=== PATIENT | male | born 1985 | race Caucasian/White ===

== ENCOUNTER → 2017-07-08 | Outpatient (CLI) | payer BC ==
[~2017-07-08] MED LIST: VENTOLIN HFA 1818 GM INH
== END ==
LOC: M.RAD 17:03
DX: S42.002A Fracture of unspecified part of left clavicle, initial encounter for closed fracture (principal); X58.XXXA Exposure to other specified factors, initial encounter; Y93.89 Activity, other specified; Y92.89 Other specified places as the place of occurrence of the external cause; Y99.8 Other external cause status

== ENCOUNTER → 2017-07-09 | Outpatient (CLI) | payer BC | LOC: M.MRI 16:13 | DX: S09.90XA Unspecified injury of head, initial encounter (principal); V89.2XXS Person injured in unspecified motor-vehicle accident, traffic, sequela; Y93.89 Activity, other specified; Y92.89 Other specified places as the place of occurrence of the external cause; Y99.8 Other external cause status ==

== ENCOUNTER → 2017-09-13 | Outpatient (CLI) | payer BC | LOC: M.RAD 15:47 | DX: S09.90XD Unspecified injury of head, subsequent encounter (principal); F31.9 Bipolar disorder, unspecified; V89.2XXD Person injured in unspecified motor-vehicle accident, traffic, subsequent encounter; Y93.55 Activity, bike riding; Y92.89 Other specified places as the place of occurrence of the external cause; Y99.8 Other external cause status ==

== ENCOUNTER → 2017-10-06 | Outpatient (CLI) | payer BC | LOC: M.MRI 09-29 10:12 | DX: M25.852 Other specified joint disorders, left hip (principal); M50.122 Cervical disc disorder at C5-C6 level with radiculopathy; F31.9 Bipolar disorder, unspecified; S09.90XD Unspecified injury of head, subsequent encounter; X58.XXXD Exposure to other specified factors, subsequent encounter ==

== ENCOUNTER → 2017-11-24 | Outpatient (CLI) | payer BC | LOC: M.MRI 16:21 | DX: S09.90XD Unspecified injury of head, subsequent encounter (principal); V89.2XXD Person injured in unspecified motor-vehicle accident, traffic, subsequent encounter ==

== ENCOUNTER 2017-12-17 16:46 | Emergency (ER) | payer BC ==
[~2017-12-17] VITALS: Ht 175.3 cm; Wt 72.6 kg
[2017-12-17 17:28] LABS: ABSOLUTE BASOPHILS 0.1 thou/uL (0.0-0.2); ABSOLUTE EOSINOPHILS 0.2 thou/uL (0.0-0.7); ABSOLUTE LYMPHOCYTES 3.5 thou/uL (0.8-5.3); ABSOLUTE NEUTROPHILS 3.9 thou/uL (1.6-8.1); EOSINOPHILS 2.2 %; HEMATOCRIT 43.7 % (42.0-52.0); HEMOGLOBIN 14.4 gm/dL (14.0-18.0); LYMPHOCYTES 39.9 %; MCH 31.4 pg (26.0-34.0); MCHC 32.9 g/dL (28.0-37.0); MCV 95.5 fL (80.0-100.0); MPV 9.2 fl. (7.2-11.1); NUCLEATED RBCS 0 /100WBC; PLATELET COUNT* 299 thou/uL (150-400); POLYS 44.9 %; RBC 4.58 mil/uL (4.50-6.00); RDW-CV 14.5 % (10.5-14.5); WBC 8.6 thou/uL (4.0-11.0)
[2017-12-17 17:34] LABS: ANION GAP 8 mmol/L (7-16); BUN 21 mg/dL (7-18); CALCIUM 8.9 mg/dL (8.5-10.1); CHLORIDE 104 mmol/L (98-107); CO2 24 mmol/L (21-32); GLUCOSE 105 mg/dL (70-99); POTASSIUM 3.3 mmol/L (3.5-5.1); SODIUM 136 mmol/L (136-145)
[2017-12-17 17:44] LABS: ALKALINE PHOSPHATASE 100 U/L (46-116); LIPASE 77 U/L (73-393); NT-PRO BRAIN NAT PEPTIDE 13 pg/mL (<300); SGOT 41 U/L (15-37); SGPT 86 U/L (30-65); TOTAL BILIRUBIN 0.9 mg/dL (<0.1-1.0); TOTAL PROTEIN 7.6 g/dL (6.4-8.2); TROPONIN-I LEVEL <0.06 ng/mL (<0.06)
[2017-12-17] MEDS ORDERED: VENTOLIN HFA 1818 GM INH (17:54)
[2017-12-17 18:10] VITALS: BP 119/66
--- NOTE | 2017-12-20 11:06 | EKG ---
[place] [address] ELECTROCARDIOGRAM REPORT Name: JENNIFER HICKMAN [facility] [id number] Admission: 12/17/17 Attend Phys: Discharge: 12/17/17 Date of : 87 Report #: [id number] THIS REPORT FOR: //name// [facility] ED Test Date: 2017-12-17 Test Time: 17:00:36 Pat Name: JENNIFER HICKMAN Department: Room: Gender: M Boatswains Mate: : 1985 Requested By: Lupillo Garcia Order Number: [id number] MD: Jennifer Lu Measurements Intervals [place] Rate: 49 P: 65 CO: 183 QRS: 5 QRSD: 83 T: 41 QT: 424 QTc: 383 Interpretive Statements Sinus bradycardia septal infarct, age indeterminate Baseline wander in lead(s) V2 No previous ECG available for comparison Electronically Signed On 12-20-2017 11:06:05 CDT by Jennifer Lu [email or web address] <ELECTRONICALLY SIGNED> By: Jennifer uL MD, [facility] 12/20/17 1106 1700 1700 Jennifer Lu MD, FACC /EPI
== END 2017-12-17 18:10 | disposition home or self-care (01) ==
LOC: M.ERS 16:46
PROVIDERS: Emergency Medicine
DX: R06.00 Dyspnea, unspecified (principal); Z87.891 Personal history of nicotine dependence; Z88.0 Allergy status to penicillin

== ENCOUNTER 2017-12-25 16:49 | Emergency (ER) | payer BC ==
[~2017-12-25] VITALS: Ht 175.3 cm; Wt 78.5 kg
[2017-12-25 17:47] LABS: URINE BILIRUBIN NEGATIVE (Negative); URINE BLOOD NEGATIVE (Negative); URINE CLARITY CLEAR; URINE COLOR YELLOW; URINE GLUCOSE-RANDOM NEGATIVE (Negative); URINE KETONES NEGATIVE (Negative); URINE LEUKOCYTES-REFLEX NEGATIVE (Negative); URINE NITRITE-REFLEX NEGATIVE (Negative); URINE PROTEIN NEGATIVE (Negative); URINE SPECIFIC GRAVITY 1.015 (1.005-1.030); URINE UROBILINOGEN 0.2 E.U./dl (0.2-1.0)
[2017-12-25 17:54] LABS: AMP/METHAMP Negative (Negative); BARBITURATES Negative (Negative); BENZODIAZEPINES Negative (Negative); COCAINE Negative (Negative); METHADONE Negative (Negative); OPIATES Negative (Negative); PCP Negative (Negative); THC Negative (Negative)
[2017-12-25 18:00] LABS: ABSOLUTE BASOPHILS 0.1 thou/uL (0.0-0.2); ABSOLUTE LYMPHOCYTES 2.7 thou/uL (0.8-5.3); ABSOLUTE MONOCYTES 0.6 thou/uL (0.0-1.2); ABSOLUTE NEUTROPHILS 6.2 thou/uL (1.6-8.1); BASOPHILS 0.7 %; EOSINOPHILS 0.5 %; HEMATOCRIT 43.9 % (42.0-52.0); HEMOGLOBIN 14.6 gm/dL (14.0-18.0); LYMPHOCYTES 27.7 %; MCH 31.9 pg (26.0-34.0); MCHC 33.1 g/dL (28.0-37.0); MCV 96.2 fL (80.0-100.0); MONOCYTES 6.5 %; MPV 8.9 fl. (7.2-11.1); NUCLEATED RBCS 0 /100WBC; PLATELET COUNT* 303 thou/uL (150-400); POLYS 64.6 %; RBC 4.57 mil/uL (4.50-6.00); RDW-CV 14.8 % (10.5-14.5); WBC 9.6 thou/uL (4.0-11.0)
[2017-12-25 18:05] LABS: CALCIUM 9.2 mg/dL (8.5-10.1); POTASSIUM 4.1 mmol/L (3.5-5.1)
[2017-12-25 18:15] LABS: ALBUMIN 4.1 g/dL (3.4-5.0); TOTAL BILIRUBIN 0.1 mg/dL (<0.1-1.0); TOTAL PROTEIN 7.8 g/dL (6.4-8.2)
[2017-12-25 18:45] VITALS: BP 155/81
== END 2017-12-25 18:45 | disposition home or self-care (01) ==
LOC: M.ERS 16:49
PROVIDERS: Nurse Practitioner Family
DX: R11.0 Nausea (principal); R53.83 Other fatigue; Z87.01 Personal history of pneumonia (recurrent); Z88.0 Allergy status to penicillin; Z87.891 Personal history of nicotine dependence

== ENCOUNTER → 2018-01-04 | Outpatient (CLI) | payer BC ==
--- NOTE | 2018-01-07 11:58 | PF ---
[address] [address] PULMONARY FUNCTION REPORT Name: PAKO HICKMAN Room: [facility].#: [id number] Admission: Attend Phys: Pako Santamaria MD Discharge: Date of : 87 Report #: [id number] THIS REPORT FOR: //name// CC: Pako Santamaria REFERRING PHYSICIAN: Pako Santamaria M.D. TYPE OF STUDY: Pulmonary function test. SPIROMETRY: The FEV1/FVC was 74%. FEV1 was 2.8 liters at 65% predicted. FVC was 67% predicted. Total lung capacity was 61% predicted. DLCO was 83% predicted. The [id number] percentage was 53% of predicted. IMPRESSION: The above pulmonary function test was suggestive of small airway disease and evidence of restrictive pulmonary defect of [id number]-iddbijag degree with normal DLCO. <ELECTRONICALLY SIGNED> By: Panchito Montano MD 01/07/18 1158 1414 0228Sherry Mckeon MD /nt
== END ==
LOC: M.CT 12-29 07:52
DX: K76.0 Fatty (change of) liver, not elsewhere classified (principal); K80.20 Calculus of gallbladder without cholecystitis without obstruction; J98.4 Other disorders of lung; R42 Dizziness and giddiness; M25.552 Pain in left hip; R53.1 Weakness; Z90.81 Acquired absence of spleen

== ENCOUNTER → 2018-03-18 | Outpatient (CLI) | payer BC | LOC: M.MRI 17:08 | DX: M25.552 Pain in left hip (principal); S09.90XD Unspecified injury of head, subsequent encounter; M54.2 Cervicalgia; F31.9 Bipolar disorder, unspecified; R42 Dizziness and giddiness; X58.XXXD Exposure to other specified factors, subsequent encounter ==

== ENCOUNTER → 2018-04-06 | Outpatient (CLI) | payer BC | END | disposition home or self-care (01) | LOC: M.RAD 03-28 11:22 | DX: S73.192D Other sprain of left hip, subsequent encounter (principal); M25.552 Pain in left hip; J45.909 Unspecified asthma, uncomplicated; Z88.0 Allergy status to penicillin; Z98.890 Other specified postprocedural states; Z79.899 Other long term (current) drug therapy; V89.2XXD Person injured in unspecified motor-vehicle accident, traffic, subsequent encounter ==

== ENCOUNTER → 2018-05-13 | Outpatient (CLI) | payer BC | LOC: M.RAD 13:27 | DX: M51.34 Other intervertebral disc degeneration, thoracic region (principal); J98.4 Other disorders of lung ==

== ENCOUNTER → 2019-12-13 | Outpatient (CLI) | payer MEDICARE | LOC: M.MRI 11-30 11:58 | PROVIDERS: ATTEND Internal Medicine | DX: S09.90XD Unspecified injury of head, subsequent encounter (principal); M25.552 Pain in left hip; M54.2 Cervicalgia; R42 Dizziness and giddiness; L40.9 Psoriasis, unspecified; V89.2XXD Person injured in unspecified motor-vehicle accident, traffic, subsequent encounter ==

== ENCOUNTER → 2019-12-21 | Outpatient (CLI) | payer MEDICARE | LOC: M.MRI 13:30 | PROVIDERS: ATTEND Internal Medicine | DX: M48.02 Spinal stenosis, cervical region (principal); M25.552 Pain in left hip; S09.90XD Unspecified injury of head, subsequent encounter; R42 Dizziness and giddiness; L40.9 Psoriasis, unspecified; M47.812 Spondylosis without myelopathy or radiculopathy, cervical region ==

== ENCOUNTER → 2020-01-02 | Outpatient (CLI) | payer MEDICARE | LOC: M.MRI 15:57 | PROVIDERS: ATTEND Internal Medicine | DX: M47.817 Spondylosis without myelopathy or radiculopathy, lumbosacral region (principal); F31.9 Bipolar disorder, unspecified; R42 Dizziness and giddiness; M54.42 Lumbago with sciatica, left side; M25.512 Pain in left shoulder; G89.29 Other chronic pain ==

== ENCOUNTER → 2020-01-18 | Outpatient (CLI) | payer MEDICARE ==
[~2020-01-18] MED LIST changes: +MOBIC15 MG PO; +NEURONTIN 300M300 M2 PO
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
== END ==
LOC: M.PC 01:46
PROVIDERS: ATTEND Anesthesiology Pain Medicine
DX: M47.817 Spondylosis without myelopathy or radiculopathy, lumbosacral region (principal); Z88.0 Allergy status to penicillin; Z79.899 Other long term (current) drug therapy

== ENCOUNTER → 2020-02-14 | Outpatient (CLI) | payer MEDICARE | LOC: M.CT 14:59 | PROVIDERS: ATTEND Registered Nurse Diabetes Educator | DX: K80.20 Calculus of gallbladder without cholecystitis without obstruction (principal); K62.5 Hemorrhage of anus and rectum ==

== ENCOUNTER → 2020-08-29 | Outpatient (CLI) | payer OTHER | LOC: M.RAD 15:15 | PROVIDERS: ATTEND Registered Nurse Diabetes Educator | DX: M48.02 Spinal stenosis, cervical region (principal); M25.552 Pain in left hip; M54.5 Low back pain; K80.20 Calculus of gallbladder without cholecystitis without obstruction ==

== ENCOUNTER → 2020-11-01 | Outpatient (CLI) | payer OTHER, MEDICAID | END | disposition home or self-care (01) | LOC: M.RAD 10-25 11:31 | PROVIDERS: ATTEND Registered Nurse Diabetes Educator | DX: M25.552 Pain in left hip (principal); M16.12 Unilateral primary osteoarthritis, left hip; S73.192A Other sprain of left hip, initial encounter; Z98.890 Other specified postprocedural states; Z79.899 Other long term (current) drug therapy; Z88.0 Allergy status to penicillin; X58.XXXA Exposure to other specified factors, initial encounter; Y93.89 Activity, other specified; Y92.89 Other specified places as the place of occurrence of the external cause; Y99.9 Unspecified external cause status ==

== ENCOUNTER → 2020-11-15 | Outpatient (CLI) | payer OTHER, MEDICAID | LOC: M.CT 14:00 | PROVIDERS: ATTEND Registered Nurse Diabetes Educator | DX: J92.9 Pleural plaque without asbestos (principal); J98.11 Atelectasis; J98.4 Other disorders of lung ==

== ENCOUNTER → 2021-06-30 | Outpatient (CLI) | payer OTHER, MEDICAID | LOC: M.MRI 13:30 | PROVIDERS: ATTEND Registered Nurse Diabetes Educator | DX: M50.222 Other cervical disc displacement at C5-C6 level (principal); M48.02 Spinal stenosis, cervical region; R10.2 Pelvic and perineal pain ==

== ENCOUNTER 2021-08-01 00:21 | Emergency (ER) | payer OTHER, MEDICAID ==
[~2021-08-01] VITALS: Ht 175.3 cm; Wt 52.6 kg
[2021-08-01] MEDS ORDERED: TRAMADOL 50 MG50 MG (00:38)
[2021-08-01 01:02] LABS: ABSOLUTE BASOPHILS 0.1 thou/uL (0.0-0.2); ABSOLUTE LYMPHOCYTES 4.1 thou/uL (0.8-5.3); ABSOLUTE MONOCYTES 0.9 thou/uL (0.0-1.2); ABSOLUTE NEUTROPHILS 11.1 thou/uL (1.6-8.1); BASOPHILS 0.6 %; EOSINOPHILS 0.2 %; HEMOGLOBIN 14.4 gm/dL (14.0-18.0); LYMPHOCYTES 25.1 %; MCH 31.5 pg (26.0-34.0); MCHC 33.4 g/dL (28.0-37.0); MCV 94.4 fL (80.0-100.0); MONOCYTES 5.8 %; MPV 8.5 fl. (7.2-11.1); NUCLEATED RBCS 0 /100WBC; PLATELET COUNT* 283 thou/uL (150-400); POLYS 68.3 %; RBC 4.56 mil/uL (4.50-6.00); WBC 16.2 thou/uL (4.0-11.0)
[2021-08-01 01:13] LABS: CREATININE 1.1 mg/dL (0.6-1.3); POTASSIUM 3.4 mmol/L (3.5-5.1)
[2021-08-01 01:18] LABS: ALBUMIN 3.9 g/dL (3.4-5.0); TOTAL BILIRUBIN 0.6 mg/dL (<0.1-1.0)
[2021-08-01 01:55] LABS: URINE BLOOD NEGATIVE (Negative); URINE CLARITY CLEAR; URINE COLOR YELLOW; URINE GLUCOSE-RANDOM NEGATIVE (Negative); URINE KETONES 1+ (Negative); URINE LEUKOCYTES-REFLEX NEGATIVE (Negative); URINE NITRITE-REFLEX NEGATIVE (Negative); URINE PROTEIN NEGATIVE (Negative)
[2021-08-01 01:56] LABS: URINE BILIRUBIN 1+ (Negative)
[2021-08-01 01:58] LABS: ICTOTEST (BILI CONFIRMATORY) Negative (Negative)
[2021-08-01 02:04] LABS: AMP/METHAMP Negative (Negative); BARBITURATES Negative (Negative); BENZODIAZEPINES Negative (Negative); COCAINE Negative (Negative); METHADONE Negative (Negative); OPIATES Negative (Negative); PCP Negative (Negative); THC Negative (Negative)
[2021-08-01 03:30] VITALS: BP 111/57
--- NOTE | 2021-08-01 09:31 | EKG ---
[place] [address] ELECTROCARDIOGRAM REPORT Name: JENNIFER HICKMAN Room: 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1985 Requested By: Petrona Hale Order Number: [id number] MD: Brandon Bryant Measurements Intervals [place] Rate: 85 P: 79 MN: 186 QRS: 10 QRSD: 75 T: 133 QT: 320 QTc: 381 Interpretive Statements Sinus rhythm Probable left atrial enlargement Anteroseptal infarct, old Nonspecific T abnormalities, lateral leads Compared to ECG 12/17/2017 17:00:36 T-wave abnormality now present Sinus bradycardia no longer present Myocardial infarct finding still present Electronically Signed On 08-01-2021 9:31:31 PINMAKER by Brandon Bryant [email or web address] <ELECTRONICALLY SIGNED> By: Brandon Bryant MD, FAC 08/01/21 0931 004 0041 Brandon Bryant MD, FAC /EPI
== END 2021-08-01 03:30 | disposition home or self-care (01) ==
LOC: M.ERS 00:21
PROVIDERS: Emergency Medicine
DX: M25.552 Pain in left hip (principal); Z79.51 Long term (current) use of inhaled steroids; Z79.899 Other long term (current) drug therapy; Z88.0 Allergy status to penicillin; Z87.891 Personal history of nicotine dependence